=== PATIENT | female | born 1950 | race Caucasian/White ===

== ENCOUNTER → 2024-09-17 | Outpatient (CLI) | payer OTHER, SELFPAY ==
--- NOTE | 2024-09-17 13:52 | XR_ITS ---
Examination: Knee, right , 3 views Technique: Knee AP, lateral, oblique 3 views Date and time of exam: September 17, 2024 1357 hours INDICATIONS: Right knee pain and swelling beginning one year ago. FINDINGS: Severe osteopenia Sclerotic areas in the medial femoral condyle No acute fracture Mild tricompartment joint narrowing IMPRESSION: Suspicious for osteonecrosis medial femoral condyle Consider MRI knee without contrast follow-up
== END | disposition home or self-care (01) ==
PROVIDERS: PCP Student in an Organized Health Care Education/Training Program; Referring Provider Student in an Organized Health Care Education/Training Program; Visit Provider Student in an Organized Health Care Education/Training Program
DX: M25.561 Pain in right knee (principal)
CPT/HCPCS: 73562

== ENCOUNTER → 2024-09-29 | Outpatient (CLI) | payer OTHER, SELFPAY ==
[2024-09-29 10:30] LABS: Basophils % (Auto) 1 % (0-2.5); Eosinophils # (Auto) 0.1 Thou/mm3 (0.0-0.5); Eosinophils % (Auto) 2 % (0-10); Hematocrit 37.3 % (36.0-46.0); Immature Granulocytes % (Auto) 0 % (0-0); Immature Granulocytes Auto 0.01 Thou/mm3 (0.00-0.00); Lymphocytes # (Auto) 1.8 Thou/mm3 (1.0-4.8); Lymphocytes % (Auto) 33 % (10-50); Mean Corpuscular HGB Conc 32.2 g/dl (31.0-37.0); Mean Corpuscular Hemoglobin 28.8 pg (25.0-35.0); Mean Corpuscular Volume 89 fL (80-100); Monocytes # (Auto) 0.5 Thou/mm3 (0.0-0.8); Monocytes % (Auto) 9 % (0-12); Neutrophils # (Auto) 3.2 Thou/mm3 (1.8-7.7); Neutrophils % (Auto) 56 % (37-80); Nucleated Red Blood Cell % 0 /100 WBC (0); Platelet Count 243 Thou/mm3 (140-440); RDW Standard Deviation 45.7 fL (36.4-46.3); Red Blood Count 4.17 Miln/mm3 (4.00-5.20); White Blood Count 5.6 Thou/mm3 (3.6-11.0)
[2024-09-29 10:45] LABS: Glucose Estimated Average 108 mg/dL (80-131); Hemoglobin A1C 5.4 % Hgb (4.8-6.0)
[2024-09-29 11:20] LABS: Alanine Aminotransferase 9 U/L (10-49); Albumin, Serum 3.9 gm/dL (3.4-4.8); Albumin/Globulin Ratio 1.3 (1.2-2.2); Alkaline Phosphatase 231 U/L (46-116); Anion Gap 8 (7-16); Aspartate Amino Transferase 26 U/L (0-34); BUN/Creatinine Ratio 23 Ratio (12-20); Bilirubin,Total 0.4 mg/dL (0.3-1.2); Blood Urea Nitrogen 18 mg/dL (9-23); Calcium 9.4 mg/dL (8.3-10.6); Calcium (Corrected) 9.5 mg/dL (8.5-10.1); Carbon Dioxide 28.5 mMol/L (20.0-31.0); Cardiac Risk Estimate 4.5 RATIO (3.7-5.6); Chloride 104 mMol/L (98-107); Cholesterol 179 mg/dL (132-200); Creatinine (Component) 0.8 mg/dL (0.6-1.3); Globulin 2.9 gm/dL (2.3-3.5); Glucose 98 mg/dL (74-106); HDL Cholesterol 40 mg/dL (40-60); LDL Cholesterol,Calculated 108 mg/dL (0-130); Osmolality,Calculated 281 (275-295); Potassium 4.2 mMol/L (3.4-5.1); Sodium 140 mMol/L (136-145); Total Protein 6.8 gm/dL (5.7-8.2); Triglycerides 156 mg/dL (30-150); Uric Acid 7.9 mg/dL (3.1-7.8); eGFR > 60 See Note
== END | disposition home or self-care (01) ==
LOC: COPL 09:05
PROVIDERS: PCP Student in an Organized Health Care Education/Training Program; Referring Provider Student in an Organized Health Care Education/Training Program; Visit Provider Student in an Organized Health Care Education/Training Program
DX: E11.9 Type 2 diabetes mellitus without complications (principal); E78.5 Hyperlipidemia, unspecified; M25.561 Pain in right knee
CPT/HCPCS: 36415; 80053; 80061; 83036; 84550; 85025

== ENCOUNTER → 2024-12-18 | Outpatient (CLI) | payer OTHER, SELFPAY ==
--- NOTE | 2024-12-18 15:44 | XR_ITS ---
Examination: Venous duplex lower extremity sonogram, bilateral. Date and time of exam: December 18, 2024 1550 hrs. Indications: Bilateral leg pain and swelling beginning 2 years ago Technique: Multiple sonographic images of the deep venous system have been obtained. B-mode/2-D grayscale imaging of vascular structures and Doppler spectral analysis (waveforms) and color performed Both legs are examined. Findings: Deep venous systems do not demonstrate abnormal echogenicity. All visualized deep veins exhibit compressibility. All visualized deep veins exhibit augmentation. Impression: Negative for deep vein thrombosis
== END | disposition home or self-care (01) ==
LOC: CDIM 15:33
PROVIDERS: Referring Provider Student in an Organized Health Care Education/Training Program; Visit Provider Student in an Organized Health Care Education/Training Program
DX: R22.43 Localized swelling, mass and lump, lower limb, bilateral (principal)
CPT/HCPCS: 93970

== ENCOUNTER → 2025-01-02 | Outpatient (CLI) | payer OTHER, SELFPAY ==
--- NOTE | 2025-01-02 17:00 | XR_ITS ---
Exam: MRI knee without contrast, right Date and time of exam: January 02, 2025 1818 hours INDICATIONS: Generalized knee pain 2 years Technique: Multiple axial, coronal, and sagittal sections on the knee have been obtained. T2-Weighted sagittal, fat-suppressed images, TR 3,500, TE 62, T2 weighted coronal fat-saturated images, TR 3,500, TE 62 Proton density sagittal sections, TR 1800, TE 31. T-1 weighted coronal images, TR 524, TE 13.0 Findings: Medial meniscus anterior horn intact. Medial meniscus, body intact. Posterior horn medial meniscus intact. Lateral meniscus anterior horn is intact Lateral meniscus, body is intact Posterior horn lateral meniscus is intact Anterior cruciate ligament appears intact. Posterior cruciate ligament appears intact. Knee effusion is moderate. Quadriceps and patellar tendons appear intact. There is no evidence of tendinosis. Inflammatory change or fracture of Hoffa's fat pad is not seen. Medial patellar facet demonstrates moderate thinning. Lateral patellar facet cartilage demonstrates moderate thinning. Trochlear cartilage demonstrates moderate thinning. Marrow signal area involving the distal femur replacing the medial femoral condyle, at least 8 x 6 x 4 cm. Medial collateral ligament appears intact. No meniscocapsular separation is seen. Illiotibial band and fibular collateral ligament are intact. Biceps femoris tendons appear intact. Medial femoral condylar articular cartilage demonstrates moderate thinning. Lateral femoral condylar articular cartilage demonstratesmoderate thinning. Tibial plateau cartilage demonstrates moderate thinning. Impression: This patient should return for MRI knee images postintravenous contrast to exclude tumor mass replacing the medial femoral condyle and portions of the distal shaft of the femur
== END | disposition home or self-care (01) ==
PROVIDERS: PCP Student in an Organized Health Care Education/Training Program; Referring Provider Student in an Organized Health Care Education/Training Program; Visit Provider Student in an Organized Health Care Education/Training Program
DX: M25.561 Pain in right knee (principal)
CPT/HCPCS: 73721

== ENCOUNTER → 2025-04-06 | Outpatient (CLI) | payer OTHER, SELFPAY | END | disposition home or self-care (01) | LOC: SWHD 13:47 | PROVIDERS: PCP Student in an Organized Health Care Education/Training Program; Referring Provider Student in an Organized Health Care Education/Training Program; Visit Provider Student in an Organized Health Care Education/Training Program | DX: L98.492 Non-pressure chronic ulcer of skin of other sites with fat layer exposed (principal); S21.001A Unspecified open wound of right breast, initial encounter; X58.XXXA Exposure to other specified factors, initial encounter; H54.61 Unqualified visual loss, right eye, normal vision left eye | CPT/HCPCS: 99213; A9270; G0463 ==

== ENCOUNTER → 2025-04-13 | Outpatient (CLI) | payer OTHER, SELFPAY | END | disposition home or self-care (01) | LOC: SWHD 13:58 | PROVIDERS: PCP Student in an Organized Health Care Education/Training Program; Referring Provider Student in an Organized Health Care Education/Training Program; Visit Provider Student in an Organized Health Care Education/Training Program | DX: L98.492 Non-pressure chronic ulcer of skin of other sites with fat layer exposed (principal); S21.001A Unspecified open wound of right breast, initial encounter; X58.XXXA Exposure to other specified factors, initial encounter; H54.61 Unqualified visual loss, right eye, normal vision left eye; C50.911 Malignant neoplasm of unspecified site of right female breast | CPT/HCPCS: 17250; A9270 ==

== ENCOUNTER 2025-04-15 08:50 | Outpatient (RCR) | payer OTHER, SELFPAY ==
--- NOTE | 2025-04-02 14:29 | CTCCONSULT_ITS ---
[facility] [address] [place], [place] [address] Consultation Note Date: 04/02/2025 MR#: [id number] Name: MARKO HATHAWAY : 1950 Dx: C50.211 Right breast CA Referring physician. [facility] Reason for consultation. Patient with right breast CA. History of Present Illness: Patient is a 74-year-old lady initially diagnosed to have right breast CA in 2019 when on 05/20/2020 underwent ultrasound-guided needle biopsy of right breast revealing invasive ductal carcinoma intermediate grade 1.6 cm. Receptor positive HER2 negative Ki-67 less than 5%. Patient elected to not seek any treatment and rarely saw doctors for this problem. Recently 01/02/2025 patient had MRI of the right knee due to pain there revealing marrow signal area involving distal femur replacing medial femoral condyle of at least 8 x 6 x 4 cm. With breast cancer currently recurring significantly was referred to Dr. Yancey breast surgeon who declined breast surgery. Patient now referred to the cancer center. Patient states she has pain particular in the right knee area and pelvis but takes ibuprofen which take some of the pain away. Past Medical History: Right breast cancer for 5 years but no treatment sought. Diabetes glaucoma; Meds. Timolol ibuprofen various vitamins and herbs natural meds stool softeners Social History: Patient bilingual originally from [place] retired. Family history. 2 sisters had breast cancer Review of Systems: Has had pain weight loss general malaise. Physical Exam: General: Tired appearing lady in a wheelchair accompanied by relatives HEENT: Atraumatic no cephalic extraocular intact no oral lesions CV: Easily visible and palpable right breast tumor covering most of the breast with an ulcerated area in the central region. Axillary adenopathy bilaterally ABD: Soft no organomegaly or tenderness EXT: Right knee femur tenderness. Assessment:1. Patient with right breast CA diagnosed April 2020. Receptor positive HER2 negative; treated with natural remedies and did not seek conventional care. 2. Clearly locally advanced right breast cancer with likely distant mets including bone. 3. Patient had trouble lying still for recent right knee MRI. Will order plain x-rays of the spine pelvis right femur. Along with chest x-ray. 4. PET scan ordered which may be difficult due to her current condition but perhaps she will be more comfortable in a few weeks. 5. Elected to place her on tramadol for pain as ibuprofen that she is currently taking is not relieving pain enough. 5. Dr. Moss medical oncologist to see patient in a few days. 6. Thank for allowing me us to evaluate this unfortunate patient. We will do what we can to help her. Electronically signed by: Zeke Navarro MD, DABR 04/02/2025 2:27 PM
--- NOTE | 2025-04-15 11:04 | CTCCONSULT_ITS ---
Patient: MARKO HATHAWAY : 1950 MR#: [id number] Page 2 of 2 CONSULTATION NOTE DATE OF CONSULTATION: 04/15/2025 NAME: MARKO HATHAWAY ACCOUNT: [id number] : 1950 AGE: 74 REFERRING PHYSICIAN: Wayne Sandoval MD PRIMARY PHYSICIAN: Wayne Sandoval MD REASON FOR VISIT: ER positive breast cancer ONCOLOGY HISTORY: DIAGNOSIS: Malignant neoplasm of upper-inner quadrant of right female breast [ICD10] C50.211 DATE OF DIAGNOSIS: 04/30/2020 STAGE/TNM: Likely stage IV invasive ductal carcinoma of breast TREATMENT HISTORY: Care?Plan Start?Date Cycle Day Intent HISTORY OF PRESENT ILLNESS: 74-year-old female with a diagnosis of breast cancer in 2019. Patient is legally blind. And is stays in wheelchair. Patient tries to be active. Patient was diagnosed in 2019. Patient did not pursue any treatment as was not interested in pursuing further therapy. Patient now have nonhealing wound on the right breast. Patient was seen by surgery and no surgery can be performed. Patient is now here for treatment OTHER MEDICAL HISTORY/CONDITIONS: Right breast invasive ductal carcinoma - dx 05/20/20 Diabetes Glaucoma Legally blind Right?eye?cataract?surgey FAMILY HISTORY: Cancer History:?1 SIS BREST / 1 SIS BREAST . 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 Arimidex - 1 mg 1 tab Daily 2. ashwagandha extract - 500 mg 1 Capsule Daily 3. biotin - 1 mg 1 tab Daily 4. cyanocobalamin (vitamin B-12) - 1,000 mcg 1 tab Daily 5. Fish Oil - 1,000 mg 1 Capsule Daily 6. flaxseed oil - 1,000 mg 1 Capsule Daily 7. grape seed extract - 100 mg 1 Capsule Daily 8. ibuprofen - 800 mg As directed 9. latanoprost - 0.005 As directed 10. magnesium - 100 mg 1 tab Daily 11. milk thistle - 140 mg 1 Capsule Daily 12. olive leaf extract - 250 mg 1 Capsule Daily 13. oregano oiL - 1,500 mg 1 Capsule Daily 14. Mobile Pulse - 1.5 billion cell 1 Capsule Daily 15. ribociclib - 600 mg/day (200 mg x 3) 3 tab Daily 16. timolol - 0.5 As directed 17. traMADol - 50 mg 1 tab q6 18. turmeric - 400 mg 1 Capsule Daily 19. vitamin B complex - 1 Capsule Daily 20. Vitamin D3 - 400 unit 1 Capsule Daily 21. zinc - 10 mg 1 tab Daily?Palabra Meds? Medications Last Reconciled by Janel Sanford RN on 04/15/2025 ALLERGIES: No Known Allergies REVIEW OF SYSTEMS: A complete 14-point review of systems was performed and is negative except as noted in interval history. PHYSICAL EXAMINATION: VITAL SIGNS: Temperature?98.5, B/P?128/75, Height?62?inches, Oxygen?Saturation?99% Weight?141?lbs PAIN: 2 - Mild pain ECOG Performance Status: 3 - Symptomatic; limited self-care; spends >50% of time in bed, not bedridden GENERAL APPEARANCE: Appears well, in no apparent distress, appropriately interactive. HEENT: Normocephalic, no temporal wasting, normal conjunctiva, no scleral icterus, normal hearing, lips without lesions, neck normal range of motion. CARDIOVASCULAR: Not assessed. PULMONARY: Normal respiratory effort, no respiratory distress or use of accessory muscles, speaking in full sentences, no tachypnea. EXTREMITIES: No pedal edema or cyanosis. SKIN: Normal skin appearance. NEUROLOGIC: Alert and oriented x4. PSHYCHIATRIC: Appropriate affect, mood normal, behavior normal, intact thought and speech. Right breast shows fungating mass LABORATORY DATA: I have personally reviewed and interpreted each of the patient?s relevant lab tests, abnormal findings are below: Date ASSESSMENT/PLAN: 74-year-old woman with diagnosis of breast cancer Metastatic breast cancer Patient have visible lesions on the bones PET CT scan is pending Initial cancer was ER positive Will start on anastrozole Ordered a ribociclib Reordered biopsy to biopsy breast mass as well as bone 12 wait for ER/KS and HER2 receptor status Will do Caris NGS panel and PD-L1 on the tissue EKG echocardiogram ordered ECHO RTC in 4 weeks ORDERS: Order # Description [id number] Comprehensive Metabolic Panel - 12 + CBC with Auto Diff + CA 15-3 + [id number] Iron Panel + Ferritin + Vitamin B-12 + Folic Acid; Serum + Assay Of Haptoglobin Quant + Lactate Dehydrogenase (LDH) [id number] Cardiac ECHO RETURN TO CLINIC: I reviewed the diagnosis, prognosis, and recommended treatment/procedure options with the patient (and/or their legal patient registration representative), including the potential benefits, risks, side effects and alternative therapies. We also discussed the option of no treatment and the possibility of clinical trial participation, if applicable. All questions were addressed, and they demonstrated understanding. They provided informed consent to proceed with the proposed plan of care. BILLING AND COMPLIANCE: I reviewed external records from providers outside my specialty as summarized above. I spent a total of 50 minutes on this patient?s care on the day of their visit excluding time spent related to any billed procedures. This time includes time spent with the patient as well as time spent documenting in the medical record, reviewing patients records and tests, obtaining history, placing orders, communicating with other healthcare professionals, counseling the patient, family or caregiver, and/or care coordination for the diagnoses above. Electronically Signed by: Osmin Moss MD T: 11:02 AM CC: PCP: Wayne Sandoval Referring: Wayne Sandoval This document was completed utilizing speech recognition software. Grammatical errors, random word insertions, pronoun errors, and incomplete sentences are an occasional consequence of this system due to software limitations, ambient noise, and hardware issues. Any formal questions or concerns about the content, text or information contained within the body of this dictation should be directly addressed to the provider for clarification.
== END 2025-04-26 23:59 | disposition home or self-care (01) ==
LOC: SCTC 08:50
PROVIDERS: PCP Student in an Organized Health Care Education/Training Program; Referring Provider Student in an Organized Health Care Education/Training Program; Visit Provider Internal Medicine Hematology & Oncology
DX: C50.411 Malignant neoplasm of upper-outer quadrant of right female breast (principal); Z17.0 Estrogen receptor positive status [ER+]; Z17.21 Progesterone receptor positive status; Z17.32 Human epidermal growth factor receptor 2 negative status; M89.9 Disorder of bone, unspecified
CPT/HCPCS: 99213; G0463

== ENCOUNTER → 2025-04-16 | Outpatient (CLI) | payer OTHER, SELFPAY ==
[2025-04-16 09:34] LABS: Basophils # (Auto) 0.0 Thou/mm3 (0.0-0.2); Basophils % (Auto) 1 % (0-2.5); Eosinophils # (Auto) 0.1 Thou/mm3 (0.0-0.5); Eosinophils % (Auto) 1 % (0-10); Hematocrit 35.2 % (36.0-46.0); Hemoglobin 11.8 g/dL (12.0-16.0); Immature Granulocytes Auto 0.02 Thou/mm3 (0.00-0.00); Lymphocytes # (Auto) 1.7 Thou/mm3 (1.0-4.8); Lymphocytes % (Auto) 25 % (10-50); Mean Corpuscular HGB Conc 33.5 g/dl (31.0-37.0); Mean Corpuscular Hemoglobin 29.9 pg (25.0-35.0); Mean Corpuscular Volume 89 fL (80-100); Monocytes # (Auto) 0.5 Thou/mm3 (0.0-0.8); Monocytes % (Auto) 8 % (0-12); Neutrophils # (Auto) 4.3 Thou/mm3 (1.8-7.7); Neutrophils % (Auto) 65 % (37-80); Nucleated Red Blood Cell # 0.00 Thou/mm3 (0.00-0.00); Nucleated Red Blood Cell % 0 /100 WBC (0); Platelet Count 276 Thou/mm3 (140-440); RDW Standard Deviation 45.5 fL (36.4-46.3); Red Blood Count 3.94 Miln/mm3 (4.00-5.20); White Blood Count 6.6 Thou/mm3 (3.6-11.0)
[2025-04-16 09:54] LABS: Ferritin 116 ng/mL (7.3-270.7); Iron 53 mcg/dL (50-170); Percent Iron Saturation 19 % (20-55); Total Iron Binding Capacity 274 mcg/dL (250-425); Unsaturated Iron Binding 221 (225-295)
[2025-04-16 10:11] LABS: CA 15-3 41.1 U/mL (<32.4); Folate 18.71 ng/mL (>5.38); Vitamin B12 > 2000 pg/mL (211-911)
[2025-04-16 11:27] LABS: Albumin, Serum 4.0 gm/dL (3.4-4.8); Albumin/Globulin Ratio 1.4 (1.2-2.2); Alkaline Phosphatase 200 U/L (46-116); Anion Gap 12 (7-16); Aspartate Amino Transferase 42 U/L (0-34); BUN/Creatinine Ratio 20 Ratio (12-20); Bilirubin,Total 0.5 mg/dL (0.3-1.2); Blood Urea Nitrogen 16 mg/dL (9-23); Calcium 10.3 mg/dL (8.3-10.6); Calcium (Corrected) 10.3 mg/dL (8.5-10.1); Carbon Dioxide 26.5 mMol/L (20.0-31.0); Chloride 103 mMol/L (98-107); Creatinine (Component) 0.8 mg/dL (0.6-1.3); Globulin 2.9 gm/dL (2.3-3.5); Glucose 95 mg/dL (74-106); LDH (Lactate Dehydrogenase) 243 U/L (120-246); Osmolality,Calculated 282 (275-295); Potassium 4.0 mMol/L (3.4-5.1); Sodium 141 mMol/L (136-145); Total Protein 6.9 gm/dL (5.7-8.2); eGFR > 60 See Note
[2025-04-16 11:42] LABS: Alanine Aminotransferase < 7 U/L (10-49)
[2025-04-22 06:30] LABS: Haptoglobin* 199 mg/dL (43-212)
== END | disposition home or self-care (01) ==
LOC: SCTO 09:01
PROVIDERS: PCP Student in an Organized Health Care Education/Training Program; Referring Provider Internal Medicine Hematology & Oncology; Visit Provider Internal Medicine Hematology & Oncology
DX: C50.211 Malignant neoplasm of upper-inner quadrant of right female breast (principal)
CPT/HCPCS: 36415; 80053; 82607; 82728; 82746; 83010; 83540; 83550; 83615; 85025; 86300

== ENCOUNTER → 2025-04-20 | Outpatient (CLI) | payer OTHER, SELFPAY | END | disposition home or self-care (01) | LOC: SWHD 14:15 | PROVIDERS: PCP Student in an Organized Health Care Education/Training Program; Referring Provider Student in an Organized Health Care Education/Training Program; Visit Provider Student in an Organized Health Care Education/Training Program | DX: L98.492 Non-pressure chronic ulcer of skin of other sites with fat layer exposed (principal); S21.001A Unspecified open wound of right breast, initial encounter; X58.XXXA Exposure to other specified factors, initial encounter; H54.61 Unqualified visual loss, right eye, normal vision left eye; C50.911 Malignant neoplasm of unspecified site of right female breast | CPT/HCPCS: 17250; 99213; A9270; G0463 ==

== ENCOUNTER → 2025-04-23 | Outpatient (CLI) | payer OTHER, SELFPAY ==
--- NOTE | 2025-04-23 13:50 | XR_ITS ---
Examination: AP lateral chest 2 views TECHNIQUE: Upright AP lateral chest 2 views Date and time: April 23, 2025 1530 hours INDICATIONS: Breast carcinoma diagnosis with chest pain FINDINGS: Normal heart size Soft tissue density overlying the upper right chest Cortical bone destruction involving the right scapula Ribs appear grossly intact Extensive bone destruction also involving the left mid and medial clavicle IMPRESSION: Osseous metastatic disease involving the right scapula and left clavicle, with soft tissue mass projecting over the upper right chest, recommend CT chest post intravenous contrast follow-up
--- NOTE | 2025-04-23 13:50 | XR_ITS ---
Examination: AP pelvis single view Technique one AP pelvis single view INDICATIONS: Diagnosis malignant neoplasm breast, hip pain FINDINGS: Marked cortical bone destruction left hemipelvis including the left ischium and left inferior pubic ramus left superior pubic ramus and medial margin of the left femoral neck Also marked bone destruction right superior inferior pubic rami Also bone destruction involving both iliac bones the acetabular regions and right and left sacrum IMPRESSION: Extensive bone destruction involving the pelvis and left hip, recommend CT scan abdomen pelvis post intravenous contrast follow-up
--- NOTE | 2025-04-23 13:50 | XR_ITS ---
Examination: Right femur 2 views Technique one AP lateral right femur 2 views Date and time: April 15, 2025 1548 hours INDICATIONS: Right leg pain one month, breast carcinoma diagnosis. FINDINGS: Cortical bone destruction involving the medial acetabulum right superior and inferior pubic rami Cortical bone destruction involving the distal femur extending to the medial femoral condyle IMPRESSION: Osseous metastatic disease as above
--- NOTE | 2025-04-23 13:50 | XR_ITS ---
Examination: Lumbar spine, 5 views Technique: Lumbar spine AP, lateral, coned lateral lower lumbar spine, bilateral obliques 5 views Exam date and time: April 15, 2025 1459 hours INDICATIONS: Back pain several months, diagnosis breast cancer. FINDINGS: Severe bone destruction involving L4, L5 and bilateral sacrum, as well as both iliac bones above the acetabulum, bilateral superior pubic rami left ischium IMPRESSION: Extensive osseous metastatic disease, very prominent bone destruction involving the L4-L5 vertebral bodies and sacrum, recommend MRI lumbar spine follow-up pre and postcontrast
--- NOTE | 2025-04-23 13:50 | XR_ITS ---
Examination: Thoracic spine 3 views Technique one AP lateral coned thoracic spine upper region 3 views Date and time: April 23, 2025 1539 hours INDICATIONS: Back pain several months, breast cancer diagnosis. FINDINGS: Prominent osteopenia No acute thoracic fracture No dennis cortical bone destruction IMPRESSION: No dennis osseous metastatic disease involving thoracic spine
--- NOTE | 2025-04-23 13:50 | XR_ITS ---
EXAMINATION: Cervical spine, 5 views Technique: Cervical spine AP, AP odontoid, lateral, bilateral obliques, 5 views Exam date and time: April 15, 2025 1524 hours INDICATIONS: Neck pain months, breast carcinoma diagnosis. FINDINGS: Adequate alignment cervical vertebral bodies No cervical fracture Advanced disc narrowing C5-C6 No dennis cortical bone destruction IMPRESSION: Advanced degenerative disc disease C5-C6
== END | disposition home or self-care (01) ==
LOC: CDIM 13:39
PROVIDERS: PCP Student in an Organized Health Care Education/Training Program; Referring Provider Radiology Therapeutic Radiology; Visit Provider Radiology Therapeutic Radiology
DX: M89.8X0 Other specified disorders of bone, multiple sites (principal); M54.9 Dorsalgia, unspecified; M50.322 Other cervical disc degeneration at C5-C6 level; C79.51 Secondary malignant neoplasm of bone
CPT/HCPCS: 71046; 72050; 72072; 72110; 72170; 73552

== ENCOUNTER → 2025-05-04 | Outpatient (CLI) | payer OTHER, SELFPAY | END | disposition home or self-care (01) | LOC: SWHD 14:12 | PROVIDERS: PCP Student in an Organized Health Care Education/Training Program; Referring Provider Student in an Organized Health Care Education/Training Program; Visit Provider Student in an Organized Health Care Education/Training Program | DX: L98.492 Non-pressure chronic ulcer of skin of other sites with fat layer exposed (principal); S21.001A Unspecified open wound of right breast, initial encounter; X58.XXXA Exposure to other specified factors, initial encounter; H54.61 Unqualified visual loss, right eye, normal vision left eye; C50.911 Malignant neoplasm of unspecified site of right female breast | CPT/HCPCS: 99212; A9270; G0463 ==

== ENCOUNTER → 2025-05-06 | Outpatient (CLI) | payer OTHER, SELFPAY ==
--- NOTE | 2025-05-06 10:20 | EKG_ITS ---
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
== END | disposition home or self-care (01) ==
PROVIDERS: PCP Student in an Organized Health Care Education/Training Program; Referring Provider Internal Medicine Hematology & Oncology; Visit Provider Internal Medicine Hematology & Oncology
DX: C50.211 Malignant neoplasm of upper-inner quadrant of right female breast (principal)
CPT/HCPCS: 93005

== ENCOUNTER → 2025-05-07 | Outpatient (CLI) | payer OTHER, SELFPAY ==
[2025-05-07 11:14] LABS: Basophils # (Auto) 0.0 Thou/mm3 (0.0-0.2); Basophils % (Auto) 1 % (0-2.5); Eosinophils # (Auto) 0.1 Thou/mm3 (0.0-0.5); Eosinophils % (Auto) 1 % (0-10); Hematocrit 40.0 % (36.0-46.0); Hemoglobin 12.8 g/dL (12.0-16.0); Immature Granulocytes Auto 0.02 Thou/mm3 (0.00-0.00); Lymphocytes # (Auto) 2.0 Thou/mm3 (1.0-4.8); Lymphocytes % (Auto) 31 % (10-50); Mean Corpuscular HGB Conc 32.0 g/dl (31.0-37.0); Mean Corpuscular Hemoglobin 29.1 pg (25.0-35.0); Mean Corpuscular Volume 91 fL (80-100); Monocytes # (Auto) 0.5 Thou/mm3 (0.0-0.8); Monocytes % (Auto) 7 % (0-12); Neutrophils # (Auto) 4.0 Thou/mm3 (1.8-7.7); Neutrophils % (Auto) 60 % (37-80); Nucleated Red Blood Cell # 0.00 Thou/mm3 (0.00-0.00); Nucleated Red Blood Cell % 0 /100 WBC (0); Platelet Count 265 Thou/mm3 (140-440); RDW Standard Deviation 47.8 fL (36.4-46.3); Red Blood Count 4.40 Miln/mm3 (4.00-5.20); White Blood Count 6.6 Thou/mm3 (3.6-11.0)
[2025-05-07 11:30] LABS: Alanine Aminotransferase 7 U/L (10-49); Albumin, Serum 4.6 gm/dL (3.4-4.8); Albumin/Globulin Ratio 1.6 (1.2-2.2); Alkaline Phosphatase 258 U/L (46-116); Anion Gap 11 (7-16); Aspartate Amino Transferase 26 U/L (0-34); BUN/Creatinine Ratio 14 Ratio (12-20); Bilirubin,Total 0.4 mg/dL (0.3-1.2); Blood Urea Nitrogen 11 mg/dL (9-23); Calcium 10.3 mg/dL (8.3-10.6); Calcium (Corrected) 10.3 mg/dL (8.5-10.1); Carbon Dioxide 27.5 mMol/L (20.0-31.0); Chloride 102 mMol/L (98-107); Creatinine (Component) 0.8 mg/dL (0.6-1.3); Globulin 2.9 gm/dL (2.3-3.5); Glucose 104 mg/dL (74-106); Osmolality,Calculated 278 (275-295); Potassium 4.1 mMol/L (3.4-5.1); Sodium 140 mMol/L (136-145); Total Protein 7.5 gm/dL (5.7-8.2); eGFR > 60 See Note
[2025-05-07 18:00] LABS: CA 15-3 30.9 U/mL (<32.4)
== END | disposition home or self-care (01) ==
LOC: SCTO 10:32
PROVIDERS: PCP Student in an Organized Health Care Education/Training Program; Referring Provider Internal Medicine Hematology & Oncology; Visit Provider Internal Medicine Hematology & Oncology
DX: C50.211 Malignant neoplasm of upper-inner quadrant of right female breast (principal)
CPT/HCPCS: 36415; 80053; 85025; 86300

== ENCOUNTER → 2025-05-08 | Outpatient (CLI) | payer OTHER, SELFPAY ==
--- NOTE | 2025-05-08 10:30 | ECHO_ITS ---
Transthoracic Echo Report Ht (in): 62 Wt (lb): 141 Exam Location: Echo Lab Status: Preadmit Gang Investigator: Abril Vieira Indications: Procedure Performed: BP: 127 / 62 HR: 71 MEASUREMENTS (Male / Female) Normal Values 2D ECHO LV Diastolic Diameter PLAX 3.9 cm 4.2 - 5.9 / 3.9 - 5.3 cm LV Systolic Diameter PLAX 2.6 cm IVS Diastolic Thickness 0.8 cm 0.6 - 1.0 / 0.6 - 0.9 cm LVPW Diastolic Thickness 1.0 cm 0.6 - 1.0 / 0.6 - 0.9 cm LV Relative Wall Thickness 0.5 LVOT Diameter 1.9 cm LA Volume Index 24.4 cm?/m? 16 - 28 cm?/m? Ascending Aorta Diameter 2.7 cm M-MODE AV Cusp Separation MM 1.4 cm DOPPLER AV Peak Velocity 155.0 cm/s AV Peak Gradient 9.6 mmHg AV Mean Gradient 4.0 mmHg AV Velocity Time Integral 30.3 cm AI Peak Velocity 414.0 cm/s AI Peak Gradient 68.6 mmHg AI Pressure Half Time 623.0 ms LVOT Peak Velocity 120.0 cm/s LVOT Peak Gradient 5.8 mmHg LVOT Velocity Time Integral 27.4 cm LVOT Cardiac Index 3269.3 cm?/min?m? AV Area Cont Eq vti 2.6 cm? AV Area Cont Eq pk 2.2 cm? MV Area PHT 3.1 cm? Mitral E Point Velocity 68.4 cm/s Mitral A Point Velocity 89.2 cm/s Mitral E to A Ratio 0.8 LV E' Lateral Velocity 7.6 cm/s Mitral E to LV E' Lateral Ratio 9.0 LV E' Septal Velocity 7.1 cm/s Mitral E to LV E' Septal Ratio 9.7 TR Peak Velocity 149.3 cm/s TR Peak Gradient 8.9 mmHg PV Peak Velocity 73.7 cm/s PV Peak Gradient 2.2 mmHg FINDINGS Left Ventricle Normal left ventricular size, wall thickness, systolic function with no obvious regional wall motion abnormalities.There is grade I diastolic dysfunction of the left ventricle (impaired relaxation pattern). . The ejection fraction is visually estimated at -60%. Right Ventricle The right ventricle is normal in size and systolic function. Left Atrium The left atrium is normal by two-dimensional, color flow and Doppler imaging with no structural abnormalities, no thrombus formation present. Right Atrium The right atrium is normal by two-dimensional imaging, color flow and Doppler imaging with no structural abnormalities, no thrombus formation present. Atrial Septum The interatrial septum appears normal with no evidence of a shunt. Aorta The aorta is normal by two-dimensional, color flow and Doppler interrogation. Mitral Valve The mitral valve is normal by two-dimensional, color flow and Doppler interrogation. There is no significant mitral valve regurgitation, stenosis or prolapse. Aortic Valve The aortic valve is trileaflet and normal by two-dimensional, color flow and Doppler interrogation. Mild aortic valve regurgitation. Tricuspid Valve The tricuspid valve is normal by two-dimensional, color flow and Doppler interrogation.there is trace tricuspid valve regurgitation. Pulmonic Valve The pulmonic valve is not well visualized. There is no significant pulmonic valve regurgitation. Vessels The pulmonary artery appears normal. The inferior vena cava pulmonary and hepatic veins appear normal. Pericardium The pericardium is normal by two-dimensional imaging. There is no significant pericardial effusion. CONCLUSIONS Indication: Malignant neoplasm of upper- inner quadrant of right female B Normal left ventricular size and function. Approximate ejection fraction is 60%. Grade I diastolic dysfunction The right ventricle is normal in size and systolic function. Mild aortic valve regurgitation trace Triscuspid regurgitation Ashley Mayer (Electronically Signed) Final Date: 11 May 2025 17:44
== END | disposition home or self-care (01) ==
LOC: SDIM 10:16
PROVIDERS: PCP Student in an Organized Health Care Education/Training Program; Referring Provider Internal Medicine Hematology & Oncology; Visit Provider Internal Medicine Hematology & Oncology
DX: I08.3 Combined rheumatic disorders of mitral, aortic and tricuspid valves (principal); C50.211 Malignant neoplasm of upper-inner quadrant of right female breast
CPT/HCPCS: 93306

== ENCOUNTER → 2025-05-18 | Outpatient (CLI) | payer OTHER, SELFPAY | END | disposition home or self-care (01) | LOC: SWHD 14:19 | PROVIDERS: PCP Student in an Organized Health Care Education/Training Program; Referring Provider Student in an Organized Health Care Education/Training Program; Visit Provider Surgery | DX: L98.492 Non-pressure chronic ulcer of skin of other sites with fat layer exposed (principal); S21.001A Unspecified open wound of right breast, initial encounter; X58.XXXA Exposure to other specified factors, initial encounter; H54.61 Unqualified visual loss, right eye, normal vision left eye; C50.911 Malignant neoplasm of unspecified site of right female breast | CPT/HCPCS: 99213; A9270; G0463 ==

== ENCOUNTER → 2025-05-25 | Outpatient (CLI) | payer OTHER, SELFPAY | END | disposition home or self-care (01) | LOC: SWHD 14:23 | PROVIDERS: PCP Student in an Organized Health Care Education/Training Program; Referring Provider Student in an Organized Health Care Education/Training Program; Visit Provider Student in an Organized Health Care Education/Training Program | DX: L98.492 Non-pressure chronic ulcer of skin of other sites with fat layer exposed (principal); S21.001A Unspecified open wound of right breast, initial encounter; X58.XXXA Exposure to other specified factors, initial encounter; H54.61 Unqualified visual loss, right eye, normal vision left eye; C50.911 Malignant neoplasm of unspecified site of right female breast | CPT/HCPCS: 99213; A9270; G0463 ==

== ENCOUNTER 2025-05-26 15:46 | Outpatient (RCR) | payer OTHER, SELFPAY ==
--- NOTE | 2025-04-30 16:05 | CTCFLWUP_ITS ---
[facility] [address] [place], [place] [address] FOLLOW-UP NOTE Date: 04/30/2025 MR#: [id number] Name: MARKO HATHAWAY : 1950 Dx: C50.211 Malignant neoplasm of upper-inner quadrant of right female breast Identification. Patient with diagnosis of right breast CA in 05/20/2024 biopsy revealed invasive ductal carcinoma receptor positive HER2 negative but elected not see conventional treatments using natural remedies only. Locally advanced right breast CA with bone mets noted on right knee MRI of 01/02/2025 and plain x-rays just completed 04/23/2025 involving right scapula pelvis L4-5 vertebra sacrum left hip. Saw Dr. Moss medical oncologist who has prescribed anastrozole and ordered revolver sick clip. Rebiopsy of breast to check for receptor status HER2/sarai status Carls NGS panel and PD-L1 on tissue. Patient has been prescribed anastrozole and ribociclb. Patient did not like the tramadol that was prescribed to her saying that it upset her stomach and is taking ibuprofen instead. Assessment #1 stage IV breast CA, with apparent widespread bone mets. #2. Initial diagnosis made April 2024 receptor positive HER2 negative but elected to not seek standard cancer treatments. #2. prescribed anastrozole and ribociclib Dr. Moss #3. PET scan pending along with rechecking of receptor HER2/sarai PD-L1 status with repeat biopsy ordered. #4. Patient did not like tramadol and is taking ibuprofen instead. #5 Patient does not think that she can lie still for further imaging studies such as CT or MRI This could be a problem for scheduled PET scan. #6. Will adjust pain meds as needed along with checking the test results as they are completed. Electronically signed by: Zeke Navarro M.D. 04/30/2025 4:02 PM
--- NOTE | 2025-06-01 00:25 | CTCFLWUP_ITS ---
Patient: MARKO HATHAWAY : 1950 Page 3 of 5 FOLLOW UP NOTE DATE OF SERVICE: 05/26/2025 NAME: MARKO HATHAWAY ACCOUNT: [id number] : 1950 AGE: 74 INTERVAL HISTORY: Subjective History of Present Illness Maritza is a patient with breast cancer who recently started treatment with Kisqali and anastrozole. She reports no problems with the current treatment regimen. The patient notes improvement in her right leg pain. Previously, she was unable to stand on her right leg for more than a few seconds, but now she can stand for longer periods. She occasionally experiences brief, mild pain in her breast, lasting only a minute or two, which then resolves on its own. Maritza denies experiencing significant side effects from her medication, particularly noting the absence of severe diarrhea. Maritza is currently taking both Kisqali (3 pills daily for 21 days, followed by a 7-day break) and anastrozole (continuous daily dosing). She demonstrates good adherence to her medication regimen and understanding of the dosing schedule. The patient reports that her hair is starting to dry up, which may be a side effect of the treatment. The patient's overall health status appears to be improving, with the clinician noting that the cancer is already showing signs of shrinkage. Maritza expresses happiness about her progress and seems to have a positive outlook on her treatment. Medical History - Breast cancer with bone metastases, primarily affecting the pelvis and hip bones - Pain in the right leg, improving with treatment - Intermittent breast pain Medications and Supplements - Kisqali - 3 tablets daily for 21 days, followed by 7 days off - No significant side effects reported - EstroGel - Small pill taken continuously without breaks - Anastrozole - Small pill taken continuously without breaks Review of Systems General: Negative for fever, chills, fatigue, and appetite changes. Skin: Positive for hair dryness. Gastrointestinal: Negative for diarrhea. Musculoskeletal: Positive for right leg pain, improved ability to stand. Other: Positive for intermittent breast pain. Objective Physical Examination General: Blue hair noted, appearing to be drying up. Laboratory, Imaging, and Diagnostic Test Results - EKG: Normal - Echocardiogram: Ejection fraction 60% (normal) - Bone scan: Evidence of metastatic disease in pelvis and hip bones - X-ray: Evidence of metastatic disease in lower bones, no disease in spine ONCOLOGY HISTORY: DIAGNOSIS: Malignant neoplasm of upper-inner quadrant of right female breast [ICD10] C50.211 DATE OF DIAGNOSIS: 04/30/2020 STAGE/TNM: Likely stage IV invasive ductal carcinoma of breast TREATMENT HISTORY: Care?Plan Start?Date Cycle Day Intent HISTORY OF PRESENT ILLNESS: 74-year-old female with a diagnosis of breast cancer in 2019. Patient is legally blind. And is stays in wheelchair. Patient tries to be active. Patient was diagnosed in 2019. Patient did not pursue any treatment as was not interested in pursuing further therapy. Patient now have nonhealing wound on the right breast. Patient was seen by surgery and no surgery can be performed. Patient is now here for treatment OTHER MEDICAL HISTORY/CONDITIONS: Right breast invasive ductal carcinoma - dx 05/20/20 Diabetes Glaucoma Legally blind Right?eye?cataract?surgey FAMILY HISTORY: Cancer History:?1 SIS BREST / 1 SIS BREAST . 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 Arimidex - 1 mg 1 tab Daily 2. ashwagandha extract - 500 mg 1 Capsule Daily 3. biotin - 1 mg 1 tab Daily 4. cyanocobalamin (vitamin B-12) - 1,000 mcg 1 tab Daily 5. Fish Oil - 1,000 mg 1 Capsule Daily 6. flaxseed oil - 1,000 mg 1 Capsule Daily 7. grape seed extract - 100 mg 1 Capsule Daily 8. ibuprofen - 800 mg As directed 9. Kisqali - 600 mg/day (200 mg x 3) 600 mg Daily 10. latanoprost - 0.005 As directed 11. magnesium - 100 mg 1 tab Daily 12. milk thistle - 140 mg 1 Capsule Daily 13. olive leaf extract - 250 mg 1 Capsule Daily 14. oregano oiL - 1,500 mg 1 Capsule Daily 15. Medication Review Health - 1.5 billion cell 1 Capsule Daily 16. ribociclib - 600 mg/day (200 mg x 3) 3 tab Daily 17. timolol - 0.5 As directed 18. traMADol - 50 mg 1 tab q6 19. turmeric - 400 mg 1 Capsule Daily 20. vitamin B complex - 1 Capsule Daily 21. Vitamin D3 - 400 unit 1 Capsule Daily 22. zinc - 10 mg 1 tab Daily Medications Last Reconciled by Sherley Pichardo MD on 05/26/2025 ALLERGIES: REVIEW OF SYSTEMS: A complete 14-point review of systems was performed and is negative except as noted in interval history. PHYSICAL EXAMINATION: VITAL SIGNS: Temperature?98.7, B/P?115/56, Oxygen?Saturation?96% Weight?142?lbs (Change?since?04/30/25:?1?lbs) PAIN: 0 - No pain GENERAL APPEARANCE: Appears well, in no apparent distress, appropriately interactive. HEENT: Normocephalic, no temporal wasting, normal conjunctiva, no scleral icterus, normal hearing, lips without lesions, neck normal range of motion. CARDIOVASCULAR: Not assessed. PULMONARY: Normal respiratory effort, no respiratory distress or use of accessory muscles, speaking in full sentences, no tachypnea. EXTREMITIES: No pedal edema or cyanosis. SKIN: Normal skin appearance. NEUROLOGIC: Alert and oriented x4. PSHYCHIATRIC: Appropriate affect, mood normal, behavior normal, intact thought and speech. Right breast shows fungating mass LABORATORY DATA: I have personally reviewed and interpreted each of the patient?s relevant lab tests, abnormal findings are below: Date ASSESSMENT/PLAN: Maritza is a female patient with breast cancer metastatic to bone presenting for oncology follow-up while on treatment with Kisqali and anastrozole. Metastatic Breast Cancer Assessment: Patient is currently on treatment with Kisqali (ribociclib) and anastrozole for metastatic breast cancer. The cancer has metastasized to the bones, particularly in the pelvis and hip bones. There is no evidence of spinal involvement. The patient reports improvement in symptoms, including decreased pain in the right leg and breast. She is tolerating the medication well, taking the full dose of 3 Kisqali tablets daily without significant side effects. Recent imaging (X-ray) confirmed bone metastases, but no aggressive treatment is currently indicated. The patient's heart function is normal (EF 60%) and EKG is unremarkable. Plan: - Continue Kisqali - 3 tablets daily for 21 days, followed by 7 days off - Refill before 21-day cycle ends - Continue anastrozole daily without breaks - Monitor for side effects, particularly diarrhea - If severe side effects occur, reduce Kisqali dose to 1 or 2 tablets daily - Laboratory monitoring: - Complete blood count with focus on white blood cell count - To be done on day 5 or 6 of the 7-day break from Kisqali - Follow-up: - Phone appointment in 4 weeks - Review lab results with nurse (Francisca) - Continue to monitor for pain and symptom improvement - Reassess treatment efficacy in 1-2 months Reordered biopsy to biopsy breast mass as well as bone 12 wait for ER/ID and HER2 receptor status Will do [facility] NGS panel and PD-L1 on the tissue ? please run on new biopsy RTC in 4 weeks RETURN TO CLINIC: I reviewed the diagnosis, prognosis, and recommended treatment/procedure options with the patient (and/or their legal assistance representative), including the potential benefits, risks, side effects and alternative therapies. We also discussed the option of no treatment and the possibility of clinical trial participation, if applicable. All questions were addressed, and they demonstrated understanding. They provided informed consent to proceed with the proposed plan of care. BILLING AND COMPLIANCE: I reviewed external records from providers outside my specialty as summarized above. I spent a total of 50 minutes on this patient?s care on the day of their visit excluding time spent related to any billed procedures. This time includes time spent with the patient as well as time spent documenting in the medical record, reviewing patients records and tests, obtaining history, placing orders, communicating with other healthcare professionals, counseling the patient, family or caregiver, and/or care coordination for the diagnoses above. Electronically Signed by: Osmin Moss MD T: 12:22 AM CC: Walt?Mariaa?Travis,? PCP: Walt Anderson Referring: Watl Anderson This document was completed utilizing speech recognition software. Grammatical errors, random word insertions, pronoun errors, and incomplete sentences are an occasional consequence of this system due to software limitations, ambient noise, and hardware issues. Any formal questions or concerns about the content, text or information contained within the body of this dictation should be directly addressed to the provider for clarification.
== END 2025-05-26 23:59 | disposition home or self-care (01) ==
LOC: SCTC 15:46
PROVIDERS: PCP Student in an Organized Health Care Education/Training Program; Referring Provider Internal Medicine; Visit Provider Internal Medicine Hematology & Oncology
DX: C50.211 Malignant neoplasm of upper-inner quadrant of right female breast (principal); C79.51 Secondary malignant neoplasm of bone; Z17.0 Estrogen receptor positive status [ER+]; Z17.21 Progesterone receptor positive status; Z17.32 Human epidermal growth factor receptor 2 negative status; Z79.811 Long term (current) use of aromatase inhibitors
CPT/HCPCS: 99212; G0463

== ENCOUNTER → 2025-06-01 | Outpatient (CLI) | payer OTHER, SELFPAY ==
--- NOTE | 2025-06-01 10:21 | EKG_ITS ---
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
[2025-06-01 12:05] LABS: Basophils # (Auto) 0.0 Thou/mm3 (0.0-0.2); Basophils % (Auto) 1 % (0-2.5); Eosinophils # (Auto) 0.1 Thou/mm3 (0.0-0.5); Eosinophils % (Auto) 2 % (0-10); Hematocrit 35.6 % (36.0-46.0); Hemoglobin 11.7 g/dL (12.0-16.0); Immature Granulocytes Auto 0.02 Thou/mm3 (0.00-0.00); Lymphocytes # (Auto) 1.0 Thou/mm3 (1.0-4.8); Lymphocytes % (Auto) 34 % (10-50); Mean Corpuscular HGB Conc 32.9 g/dl (31.0-37.0); Mean Corpuscular Hemoglobin 29.9 pg (25.0-35.0); Mean Corpuscular Volume 91 fL (80-100); Monocytes # (Auto) 0.1 Thou/mm3 (0.0-0.8); Monocytes % (Auto) 3 % (0-12); Neutrophils # (Auto) 1.7 Thou/mm3 (1.8-7.7); Neutrophils % (Auto) 59 % (37-80); Nucleated Red Blood Cell # 0.00 Thou/mm3 (0.00-0.00); Nucleated Red Blood Cell % 0 /100 WBC (0); Platelet Count 240 Thou/mm3 (140-440); RDW Standard Deviation 46.8 fL (36.4-46.3); Red Blood Count 3.91 Miln/mm3 (4.00-5.20); White Blood Count 2.8 Thou/mm3 (3.6-11.0)
[2025-06-01 12:21] LABS: Alanine Aminotransferase < 7 U/L (10-49); Albumin, Serum 4.1 gm/dL (3.4-4.8); Albumin/Globulin Ratio 1.5 (1.2-2.2); Alkaline Phosphatase 252 U/L (46-116); Anion Gap 10 (7-16); Aspartate Amino Transferase 20 U/L (0-34); BUN/Creatinine Ratio 14 Ratio (12-20); Bilirubin,Total 0.5 mg/dL (0.3-1.2); Blood Urea Nitrogen 14 mg/dL (9-23); Calcium 9.2 mg/dL (8.3-10.6); Calcium (Corrected) 9.2 mg/dL (8.5-10.1); Carbon Dioxide 26.7 mMol/L (20.0-31.0); Chloride 104 mMol/L (98-107); Creatinine (Component) 1.0 mg/dL (0.6-1.3); Globulin 2.7 gm/dL (2.3-3.5); Glucose 128 mg/dL (74-106); Osmolality,Calculated 283 (275-295); Potassium 3.9 mMol/L (3.4-5.1); Sodium 141 mMol/L (136-145); Total Protein 6.8 gm/dL (5.7-8.2); eGFR 58 See Note
== END | disposition home or self-care (01) ==
LOC: SEKG 10:12
PROVIDERS: PCP Student in an Organized Health Care Education/Training Program; Referring Provider Internal Medicine Hematology & Oncology; Visit Provider Internal Medicine Hematology & Oncology
DX: C50.211 Malignant neoplasm of upper-inner quadrant of right female breast (principal)
CPT/HCPCS: 36415; 80053; 85025; 93005

== ENCOUNTER → 2025-06-08 | Outpatient (CLI) | payer OTHER, SELFPAY | END | disposition home or self-care (01) | LOC: SWHD 14:48 | PROVIDERS: PCP Student in an Organized Health Care Education/Training Program; Referring Provider Student in an Organized Health Care Education/Training Program; Visit Provider Surgery | DX: L98.492 Non-pressure chronic ulcer of skin of other sites with fat layer exposed (principal); S21.001A Unspecified open wound of right breast, initial encounter; X58.XXXA Exposure to other specified factors, initial encounter; H54.61 Unqualified visual loss, right eye, normal vision left eye; C50.911 Malignant neoplasm of unspecified site of right female breast | CPT/HCPCS: 99213; A9270; G0463 ==

== ENCOUNTER → 2025-06-15 | Outpatient (CLI) | payer OTHER, SELFPAY ==
--- NOTE | 2025-06-15 11:16 | EKG_ITS ---
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
[2025-06-15 11:58] LABS: Basophils # (Auto) 0.0 Thou/mm3 (0.0-0.2); Basophils % (Auto) 1 % (0-2.5); Eosinophils # (Auto) 0.0 Thou/mm3 (0.0-0.5); Eosinophils % (Auto) 1 % (0-10); Hematocrit 33.1 % (36.0-46.0); Hemoglobin 10.9 g/dL (12.0-16.0); Immature Granulocytes Auto 0.00 Thou/mm3 (0.00-0.00); Lymphocytes # (Auto) 1.5 Thou/mm3 (1.0-4.8); Lymphocytes % (Auto) 53 % (10-50); Mean Corpuscular HGB Conc 32.9 g/dl (31.0-37.0); Mean Corpuscular Hemoglobin 30.6 pg (25.0-35.0); Mean Corpuscular Volume 93 fL (80-100); Monocytes # (Auto) 0.3 Thou/mm3 (0.0-0.8); Monocytes % (Auto) 11 % (0-12); Neutrophils # (Auto) 1.0 Thou/mm3 (1.8-7.7); Neutrophils % (Auto) 35 % (37-80); Nucleated Red Blood Cell # 0.00 Thou/mm3 (0.00-0.00); Nucleated Red Blood Cell % 0 /100 WBC (0); Platelet Count 191 Thou/mm3 (140-440); RDW Standard Deviation 49.7 fL (36.4-46.3); Red Blood Count 3.56 Miln/mm3 (4.00-5.20); White Blood Count 2.9 Thou/mm3 (3.6-11.0)
[2025-06-15 12:32] LABS: Alanine Aminotransferase < 7 U/L (10-49); Albumin, Serum 4.1 gm/dL (3.4-4.8); Albumin/Globulin Ratio 1.5 (1.2-2.2); Alkaline Phosphatase 271 U/L (46-116); Anion Gap 11 (7-16); Aspartate Amino Transferase 17 U/L (0-34); BUN/Creatinine Ratio 10 Ratio (12-20); Bilirubin,Total 0.4 mg/dL (0.3-1.2); Blood Urea Nitrogen 9 mg/dL (9-23); Calcium 9.1 mg/dL (8.3-10.6); Calcium (Corrected) 9.1 mg/dL (8.5-10.1); Carbon Dioxide 27.2 mMol/L (20.0-31.0); Chloride 104 mMol/L (98-107); Creatinine (Component) 0.9 mg/dL (0.6-1.3); Globulin 2.7 gm/dL (2.3-3.5); Glucose 95 mg/dL (74-106); Osmolality,Calculated 281 (275-295); Potassium 4.1 mMol/L (3.4-5.1); Sodium 142 mMol/L (136-145); Total Protein 6.8 gm/dL (5.7-8.2); eGFR > 60 See Note
== END | disposition home or self-care (01) ==
LOC: SLAB 11:07
PROVIDERS: Referring Provider Internal Medicine Hematology & Oncology; Visit Provider Internal Medicine Hematology & Oncology
DX: C50.211 Malignant neoplasm of upper-inner quadrant of right female breast (principal)
CPT/HCPCS: 36415; 80053; 85025; 93005

== ENCOUNTER → 2025-06-19 | Outpatient (CLI) | payer OTHER, SELFPAY ==
--- NOTE | 2025-06-19 11:15 | XR_ITS ---
Examination: Breast ultrasound complete, bilateral Date and time of exam: June 19, 2025, total 08 hours MEDICATIONS: Invasive ductal cell carcinoma right breast 2 o'clock position 05/20/2020, open right breast wound in the upper region beginning of February 2025 Technique: Real-time grayscale ultrasonographic imaging bilateral breasts, including all 4 quadrants as well as nipple retroareolar and axillary regions. Findings: Sonographic images right breast 12-2 o'clock mass with indistinct margins 5.0 x 5.8 cm 10:00 mass indistinct margins and 15 x 15 mm Enlarged abnormal axillary lymph node 3.6 cm 8:00 mass indistinct margins 5 x 6 mm Sonographic images left breast 4:00 nodule lobular margins 5 x 5 mm 8:00 irregular nodule indistinct margins 8 x 7 mm Abnormal left axillary lymph node 2.9 cm Multiple abnormal axillary lymph nodes IMPRESSION: BI-RADS Category 4: Masses suspicious for carcinoma Suspicious masses 12 to 2 o'clock position right breast, 10 to 11 o'clock position right breast, 8:00 right breast Suspicious mass 8 o'clock position left breast Bilateral multiple suspicious likely metastatic axillary lymph nodes Follow-up biopsies under ultrasound guidance recommended
== END | disposition home or self-care (01) ==
LOC: CDIM 11:22
PROVIDERS: PCP Student in an Organized Health Care Education/Training Program; Referring Provider Internal Medicine Hematology & Oncology; Visit Provider Internal Medicine Hematology & Oncology
DX: N63.15 Unspecified lump in the right breast, overlapping quadrants (principal); N63.11 Unspecified lump in the right breast, upper outer quadrant; N63.24 Unspecified lump in the left breast, lower inner quadrant; C50.211 Malignant neoplasm of upper-inner quadrant of right female breast
CPT/HCPCS: 76641

== ENCOUNTER → 2025-06-22 | Outpatient (CLI) | payer OTHER, SELFPAY | END | disposition home or self-care (01) | LOC: SWHD 14:37 | PROVIDERS: PCP Student in an Organized Health Care Education/Training Program; Referring Provider Student in an Organized Health Care Education/Training Program; Visit Provider Student in an Organized Health Care Education/Training Program | DX: L98.492 Non-pressure chronic ulcer of skin of other sites with fat layer exposed (principal); S21.001A Unspecified open wound of right breast, initial encounter; X58.XXXA Exposure to other specified factors, initial encounter; H54.61 Unqualified visual loss, right eye, normal vision left eye; C50.911 Malignant neoplasm of unspecified site of right female breast | CPT/HCPCS: 99213; A9270; G0463 ==

== ENCOUNTER 2025-06-25 10:15 | Outpatient (RCR) | payer OTHER, SELFPAY ==
--- NOTE | 2025-07-08 11:15 | CTCFLWUP_ITS ---
Patient: MARKO HATHAWAY : 1950 Page 2 of 2 FOLLOW UP NOTE DATE OF SERVICE: 06/25/2025 NAME: MARKO HATHAWAY ACCOUNT: [id number] : 1950 AGE: 74 INTERVAL HISTORY: Subjective History of Present Illness Maritza is a patient with breast cancer who recently started treatment with Kisqali and anastrozole. She reports no problems with the current treatment regimen. The patient notes improvement in her right leg pain. Previously, she was unable to stand on her right leg for more than a few seconds, but now she can stand for longer periods. The lesions on her breast are healing and the wound is almost closing up. Patient is very happy and have no side effects Maritza is currently taking both Kisqali (3 pills daily for 21 days, followed by a 7-day break) and anastrozole (continuous daily dosing). She demonstrates good adherence to her medication regimen and understanding of the dosing schedule. The patient reports that her hair is starting to dry up, which may be a side effect of the treatment. Patient is companied by her sisters. Medical History - Breast cancer with bone metastases, primarily affecting the pelvis and hip bones - Pain in the right leg, improving with treatment - Intermittent breast pain Medications and Supplements - Kisqali - 3 tablets daily for 21 days, followed by 7 days off - No significant side effects reported - EstroGel - Small pill taken continuously without breaks - Anastrozole - Small pill taken continuously without breaks Review of Systems General: Negative for fever, chills, fatigue, and appetite changes. Skin: Positive for hair dryness. Gastrointestinal: Negative for diarrhea. Musculoskeletal: Positive for right leg pain, improved ability to stand. Other: Positive for intermittent breast pain. Objective Physical Examination General: Blue hair noted, appearing to be drying up. Laboratory, Imaging, and Diagnostic Test Results - EKG: Normal - Echocardiogram: Ejection fraction 60% (normal) - Bone scan: Evidence of metastatic disease in pelvis and hip bones - X-ray: Evidence of metastatic disease in lower bones, no disease in spine ONCOLOGY HISTORY: DIAGNOSIS: Malignant neoplasm of upper-inner quadrant of right female breast [ICD10] C50.211 DATE OF DIAGNOSIS: 04/30/2020 STAGE/TNM: Likely stage IV invasive ductal carcinoma of breast TREATMENT HISTORY: Care?Plan Start?Date Cycle Day Intent HISTORY OF PRESENT ILLNESS: 74-year-old female with a diagnosis of breast cancer in 2019. Patient is legally blind. And is stays in wheelchair. Patient tries to be active. Patient was diagnosed in 2019. Patient did not pursue any treatment as was not interested in pursuing further therapy. Patient now have nonhealing wound on the right breast. Patient was seen by surgery and no surgery can be performed. Patient is now here for treatment OTHER MEDICAL HISTORY/CONDITIONS: Right breast invasive ductal carcinoma - dx 05/20/20 Diabetes Glaucoma Legally blind Right?eye?cataract?surgey FAMILY HISTORY: Cancer History:?1 SIS BREST / 1 SIS BREAST . 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 Arimidex - 1 mg 1 tab Daily 2. ashwagandha extract - 500 mg 1 Capsule Daily 3. biotin - 1 mg 1 tab Daily 4. cyanocobalamin (vitamin B-12) - 1,000 mcg 1 tab Daily 5. ferrous gluconate - 324 mg (38 mg iron) 1 tab 1 tab every other day 6. Fish Oil - 1,000 mg 1 Capsule Daily 7. flaxseed oil - 1,000 mg 1 Capsule Daily 8. grape seed extract - 100 mg 1 Capsule Daily 9. ibuprofen - 800 mg As directed 10. Kisqali - 600 mg/day (200 mg x 3) 600 mg Daily 11. latanoprost - 0.005 As directed 12. magnesium - 100 mg 1 tab Daily 13. milk thistle - 140 mg 1 Capsule Daily 14. olive leaf extract - 250 mg 1 Capsule Daily 15. oregano oiL - 1,500 mg 1 Capsule Daily 16. [employer] [facility] Health - 1.5 billion cell 1 Capsule Daily 17. ribociclib - 600 mg/day (200 mg x 3) 3 tab Daily 18. timolol - 0.5 As directed 19. traMADol - 50 mg 1 tab q6 20. turmeric - 400 mg 1 Capsule Daily 21. vitamin B complex - 1 Capsule Daily 22. Vitamin D3 - 400 unit 1 Capsule Daily 23. zinc - 10 mg 1 tab Daily Medications Last Reconciled by Sherley Pichardo MD on 06/25/2025 ALLERGIES: No Known Allergies REVIEW OF SYSTEMS: A complete 14-point review of systems was performed and is negative except as noted in interval history. PHYSICAL EXAMINATION: VITAL SIGNS: Temperature?97.5, B/P?115/65, Oxygen?Saturation?98% Weight?141?lbs (Change?since?05/26/25:?-1?lbs) PAIN: 0 - No pain ECOG Performance Status: 2 - Symptomatic; ambulatory; capable of self-care; >50% of waking hrs. not in bed GENERAL APPEARANCE: Appears well, in no apparent distress, appropriately interactive. HEENT: Normocephalic, no temporal wasting, normal conjunctiva, no scleral icterus, normal hearing, lips without lesions, neck normal range of motion. CARDIOVASCULAR: Not assessed. PULMONARY: Normal respiratory effort, no respiratory distress or use of accessory muscles, speaking in full sentences, no tachypnea. EXTREMITIES: No pedal edema or cyanosis. SKIN: Normal skin appearance. NEUROLOGIC: Alert and oriented x4. PSHYCHIATRIC: Appropriate affect, mood normal, behavior normal, intact thought and speech. Right breast shows fungating mass LABORATORY DATA: I have personally reviewed and interpreted each of the patient?s relevant lab tests, abnormal findings are below: Date 06/15/25 06/29/25 ??WHITE?BLOOD?COUNT?(Thou/mm3) 2.9?L 3.7 ??RED?BLOOD?COUNT?(Miln/mm3) 3.56?L 3.75?L ??HEMOGLOBIN?(gm/dl) 10.9?L 11.7?L ??HEMATOCRIT?(%) 33.1?L 35.8?L ??PLATELET?COUNT?(Thou/mm3) 191 304 ??NEUTROPHILS?%,?AUTO?(%) 35?L 52 ??LYMPH?%,?AUTO?(%) 53?H 40 ??NEUTROPHILS,?AUTO?(Thou/mm3) 1.0?L 2.0 ??GLUCOSE,RANDOM?(mg/dL) 95 95 ??BLOOD?UREA?NITROGEN?(mg/dL) 9 10 ??CREATININE?(mg/dL) 0.90 1.00 ??SODIUM?(mmol/L) 142 140 ??POTASSIUM?(mmol/L) 4.1 4.6 ??CHLORIDE?(mmol/L) 104 107 ??CrCl?(CandG)?(ml/min) 54.07 48.32 ??AST/SGOT?(Unit/L) 17 28 ??ALT/SGPT?(Unit/L) <?7?L 8?L ??ALKALINE?PHOSPHATASE?(Unit/L) 271?H 246?H ??BILIRUBIN,?TOTAL?(mg/dL) 0.4 0.4 ??PROTEIN?TOTAL?(gm/dl) 6.8 6.5 ??ALBUMIN,?SERUM?(gm/dl) 4.1 4.0 ??GLOBULIN?(gm/dl) 2.7 2.5 ??ALBUMIN/GLOBULIN?RATIO 1.5 1.6 ??CALCIUM,?SERUM?(mg/dL) 9.1 9.1 ??CALCIUM?SERUM?(CORRECTED)?(mg/dL) 9.1 9.1 ASSESSMENT/PLAN: Maritza is a female patient with breast cancer metastatic to bone presenting for oncology follow-up while on treatment with Kisqali and anastrozole. Metastatic Breast Cancer Assessment: Patient is currently on treatment with Kisqali (ribociclib) and anastrozole for metastatic breast cancer. The cancer has metastasized to the bones, particularly in the pelvis and hip bones. There is no evidence of spinal involvement. The patient reports improvement in symptoms, including decreased pain in the right leg and breast. She is tolerating the medication well, taking the full dose of 3 Kisqali tablets daily without significant side effects. Recent imaging (X-ray) confirmed bone metastases, but no aggressive treatment is currently indicated. The patient's heart function is normal (EF 60%) and EKG is unremarkable. Patient's breast wound is healing Plan: - Continue Kisqali - 3 tablets daily for 21 days, followed by 7 days off - Refill before 21-day cycle ends - Continue anastrozole daily without breaks - Monitor for side effects, particularly diarrhea - If severe side effects occur, reduce Kisqali dose to 1 or 2 tablets daily - Laboratory monitoring: - Complete blood count with focus on white blood cell count - To be done on day 5 or 6 of the 7-day break from [facility] - Follow-up: - Phone appointment in 4 weeks - Review lab results with nurse (Francisca) - Continue to monitor for pain and symptom improvement - Reassess treatment efficacy in 1-2 months ORDERS: Order # Description [id number] CA [id number] [id number] [id number] Comprehensive Metabolic Panel - 12 + CBC with Auto Diff [id number] MD Follow Up 2 Months [id number] RETURN TO CLINIC: I reviewed the diagnosis, prognosis, and recommended treatment/procedure options with the patient (and/or their legal business services representative), including the potential benefits, risks, side effects and alternative therapies. We also discussed the option of no treatment and the possibility of clinical trial participation, if applicable. All questions were addressed, and they demonstrated understanding. They provided informed consent to proceed with the proposed plan of care. BILLING AND COMPLIANCE: I reviewed external records from providers outside my specialty as summarized above. I spent a total of 50 minutes on this patient?s care on the day of their visit excluding time spent related to any billed procedures. This time includes time spent with the patient as well as time spent documenting in the medical record, reviewing patients records and tests, obtaining history, placing orders, communicating with other healthcare professionals, counseling the patient, family or caregiver, and/or care coordination for the diagnoses above. Electronically Signed by: Osmin Moss MD T: 11:13 AM CC: Walt?Mariaa?Travis,? PCP: Wayne Sandoval Referring: Wayne Sandoval This document was completed utilizing speech recognition software. Grammatical errors, random word insertions, pronoun errors, and incomplete sentences are an occasional consequence of this system due to software limitations, ambient noise, and hardware issues. Any formal questions or concerns about the content, text or information contained within the body of this dictation should be directly addressed to the provider for clarification.
== END 2025-06-26 23:59 | disposition home or self-care (01) ==
LOC: SCTC 10:15
PROVIDERS: PCP Student in an Organized Health Care Education/Training Program; Referring Provider Student in an Organized Health Care Education/Training Program; Visit Provider Internal Medicine Hematology & Oncology
DX: C50.211 Malignant neoplasm of upper-inner quadrant of right female breast (principal); C79.51 Secondary malignant neoplasm of bone; Z17.0 Estrogen receptor positive status [ER+]; Z17.21 Progesterone receptor positive status; Z17.32 Human epidermal growth factor receptor 2 negative status; Z79.811 Long term (current) use of aromatase inhibitors; G89.3 Neoplasm related pain (acute) (chronic)
CPT/HCPCS: 99212; G0463

== ENCOUNTER → 2025-06-29 | Outpatient (CLI) | payer OTHER, SELFPAY ==
--- NOTE | 2025-06-29 11:58 | EKG_ITS ---
[facility] Test Date: 2025-06-29 Pat Name: MARKO HATHAWAY Department: Room: - Gender: Female Faculty Research Assistant: DEMETRA CLEMENTSB: 1950 Requested By: Osmin Moss Order Number: [id number] Reading MD: Osmin Moss Measurements Intervals [place] Rate: 65 P: 50 CO: 162 QRS: 15 QRSD: 75 T: 58 QT: 458 QTc: 480 Interpretive Statements SINUS RHYTHM LOW QRS VOLTAGE IN PRECORDIAL LEADS [QRS DEFLECTION < 1.0 mV IN CHEST LEADS] POSSIBLE RIGHT VENTRICULAR CONDUCTION DELAY [RSR (QR) IN V1/V2] Compared to ECG 06/15/2025 11:28:38 Low QRS voltage now present /store/S0/[id number]/ecg/[id number].pdf
[2025-06-29 13:37] LABS: Basophils # (Auto) 0.1 Thou/mm3 (0.0-0.2); Basophils % (Auto) 1 % (0-2.5); Eosinophils # (Auto) 0.1 Thou/mm3 (0.0-0.5); Eosinophils % (Auto) 1 % (0-10); Hematocrit 35.8 % (36.0-46.0); Hemoglobin 11.7 g/dL (12.0-16.0); Immature Granulocytes Auto 0.01 Thou/mm3 (0.00-0.00); Lymphocytes # (Auto) 1.5 Thou/mm3 (1.0-4.8); Lymphocytes % (Auto) 40 % (10-50); Mean Corpuscular HGB Conc 32.7 g/dl (31.0-37.0); Mean Corpuscular Hemoglobin 31.2 pg (25.0-35.0); Mean Corpuscular Volume 96 fL (80-100); Monocytes # (Auto) 0.2 Thou/mm3 (0.0-0.8); Monocytes % (Auto) 5 % (0-12); Neutrophils # (Auto) 2.0 Thou/mm3 (1.8-7.7); Neutrophils % (Auto) 52 % (37-80); Nucleated Red Blood Cell # 0.00 Thou/mm3 (0.00-0.00); Nucleated Red Blood Cell % 0 /100 WBC (0); Platelet Count 304 Thou/mm3 (140-440); RDW Standard Deviation 65.0 fL (36.4-46.3); Red Blood Count 3.75 Miln/mm3 (4.00-5.20); White Blood Count 3.7 Thou/mm3 (3.6-11.0)
[2025-06-29 13:59] LABS: Alanine Aminotransferase 8 U/L (10-49); Albumin, Serum 4.0 gm/dL (3.4-4.8); Albumin/Globulin Ratio 1.6 (1.2-2.2); Alkaline Phosphatase 246 U/L (46-116); Anion Gap 8 (7-16); Aspartate Amino Transferase 28 U/L (0-34); BUN/Creatinine Ratio 10 Ratio (12-20); Bilirubin,Total 0.4 mg/dL (0.3-1.2); Blood Urea Nitrogen 10 mg/dL (9-23); Calcium 9.1 mg/dL (8.3-10.6); Calcium (Corrected) 9.1 mg/dL (8.5-10.1); Carbon Dioxide 25.5 mMol/L (20.0-31.0); Chloride 107 mMol/L (98-107); Creatinine (Component) 1.0 mg/dL (0.6-1.3); Globulin 2.5 gm/dL (2.3-3.5); Glucose 95 mg/dL (74-106); Osmolality,Calculated 278 (275-295); Potassium 4.6 mMol/L (3.4-5.1); Sodium 140 mMol/L (136-145); Total Protein 6.5 gm/dL (5.7-8.2); eGFR 58 See Note
== END | disposition home or self-care (01) ==
PROVIDERS: PCP Student in an Organized Health Care Education/Training Program; Referring Provider Internal Medicine Hematology & Oncology; Visit Provider Internal Medicine Hematology & Oncology
DX: C50.211 Malignant neoplasm of upper-inner quadrant of right female breast (principal)
CPT/HCPCS: 36415; 80053; 85025; 93005

== ENCOUNTER → 2025-07-06 | Outpatient (CLI) | payer OTHER, SELFPAY | END | disposition home or self-care (01) | LOC: SWHD 14:45 | PROVIDERS: PCP Student in an Organized Health Care Education/Training Program; Referring Provider Student in an Organized Health Care Education/Training Program; Visit Provider Student in an Organized Health Care Education/Training Program | DX: L98.492 Non-pressure chronic ulcer of skin of other sites with fat layer exposed (principal); S21.001A Unspecified open wound of right breast, initial encounter; X58.XXXA Exposure to other specified factors, initial encounter; H54.61 Unqualified visual loss, right eye, normal vision left eye; C50.911 Malignant neoplasm of unspecified site of right female breast | CPT/HCPCS: 99213; G0463 ==

== ENCOUNTER → 2025-07-14 | Outpatient (CLI) | payer OTHER, SELFPAY ==
--- NOTE | 2025-07-14 12:02 | EKG_ITS ---
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
[2025-07-14 12:37] LABS: Basophils # (Auto) 0.0 Thou/mm3 (0.0-0.2); Basophils % (Auto) 1 % (0-2.5); Eosinophils # (Auto) 0.1 Thou/mm3 (0.0-0.5); Eosinophils % (Auto) 1 % (0-10); Hematocrit 35.3 % (36.0-46.0); Hemoglobin 11.7 g/dL (12.0-16.0); Immature Granulocytes Auto 0.01 Thou/mm3 (0.00-0.00); Lymphocytes # (Auto) 1.6 Thou/mm3 (1.0-4.8); Lymphocytes % (Auto) 44 % (10-50); Mean Corpuscular HGB Conc 33.1 g/dl (31.0-37.0); Mean Corpuscular Hemoglobin 32.6 pg (25.0-35.0); Mean Corpuscular Volume 98 fL (80-100); Monocytes # (Auto) 0.4 Thou/mm3 (0.0-0.8); Monocytes % (Auto) 12 % (0-12); Neutrophils # (Auto) 1.5 Thou/mm3 (1.8-7.7); Neutrophils % (Auto) 41 % (37-80); Nucleated Red Blood Cell # 0.00 Thou/mm3 (0.00-0.00); Nucleated Red Blood Cell % 0 /100 WBC (0); Platelet Count 174 Thou/mm3 (140-440); RDW Standard Deviation 71.7 fL (36.4-46.3); Red Blood Count 3.59 Miln/mm3 (4.00-5.20); White Blood Count 3.7 Thou/mm3 (3.6-11.0)
[2025-07-14 13:10] LABS: Alanine Aminotransferase < 7 U/L (10-49); Albumin, Serum 4.3 gm/dL (3.4-4.8); Albumin/Globulin Ratio 1.7 (1.2-2.2); Alkaline Phosphatase 251 U/L (46-116); Anion Gap 9 (7-16); Aspartate Amino Transferase 21 U/L (0-34); BUN/Creatinine Ratio 13 Ratio (12-20); Bilirubin,Total 0.4 mg/dL (0.3-1.2); Blood Urea Nitrogen 12 mg/dL (9-23); Calcium 9.3 mg/dL (8.3-10.6); Calcium (Corrected) 9.3 mg/dL (8.5-10.1); Carbon Dioxide 26.5 mMol/L (20.0-31.0); Chloride 106 mMol/L (98-107); Creatinine (Component) 0.9 mg/dL (0.6-1.3); Globulin 2.6 gm/dL (2.3-3.5); Glucose 85 mg/dL (74-106); Osmolality,Calculated 279 (275-295); Potassium 4.1 mMol/L (3.4-5.1); Sodium 141 mMol/L (136-145); Total Protein 6.9 gm/dL (5.7-8.2); eGFR > 60 See Note
== END | disposition home or self-care (01) ==
LOC: SLAB 11:51
PROVIDERS: Referring Provider Internal Medicine Hematology & Oncology; Visit Provider Internal Medicine Hematology & Oncology
DX: C50.211 Malignant neoplasm of upper-inner quadrant of right female breast (principal)
CPT/HCPCS: 36415; 80053; 85025; 93005

== ENCOUNTER → 2025-07-20 | Outpatient (CLI) | payer OTHER, SELFPAY | END | disposition home or self-care (01) | LOC: SWHD 14:58 | PROVIDERS: PCP Student in an Organized Health Care Education/Training Program; Referring Provider Student in an Organized Health Care Education/Training Program; Visit Provider Student in an Organized Health Care Education/Training Program | DX: L98.492 Non-pressure chronic ulcer of skin of other sites with fat layer exposed (principal); S21.001A Unspecified open wound of right breast, initial encounter; X58.XXXA Exposure to other specified factors, initial encounter; H54.61 Unqualified visual loss, right eye, normal vision left eye; C50.911 Malignant neoplasm of unspecified site of right female breast | CPT/HCPCS: 99212; G0463 ==

== ENCOUNTER 2025-07-28 07:31 | Outpatient (CLI) | payer OTHER, SELFPAY ==
[2025-07-27 12:20] LABS: Basophils # (Auto) 0.0 Thou/mm3 (0.0-0.2); Basophils % (Auto) 2 % (0-2.5); Eosinophils # (Auto) 0.0 Thou/mm3 (0.0-0.5); Eosinophils % (Auto) 2 % (0-10); Hematocrit 32.8 % (36.0-46.0); Hemoglobin 10.8 g/dL (12.0-16.0); Immature Granulocytes Auto 0.01 Thou/mm3 (0.00-0.00); Lymphocytes # (Auto) 1.0 Thou/mm3 (1.0-4.8); Lymphocytes % (Auto) 36 % (10-50); Mean Corpuscular HGB Conc 32.9 g/dl (31.0-37.0); Mean Corpuscular Hemoglobin 33.1 pg (25.0-35.0); Mean Corpuscular Volume 101 fL (80-100); Monocytes # (Auto) 0.1 Thou/mm3 (0.0-0.8); Monocytes % (Auto) 5 % (0-12); Neutrophils # (Auto) 1.5 Thou/mm3 (1.8-7.7); Neutrophils % (Auto) 56 % (37-80); Nucleated Red Blood Cell # 0.00 Thou/mm3 (0.00-0.00); Nucleated Red Blood Cell % 0 /100 WBC (0); Platelet Count 336 Thou/mm3 (140-440); RDW Standard Deviation 74.7 fL (36.4-46.3); Red Blood Count 3.26 Miln/mm3 (4.00-5.20); White Blood Count 2.7 Thou/mm3 (3.6-11.0)
[2025-07-27 12:26] LABS: INR 0.9 (0.9-1.3); Partial Thromboplastin Time 28.8 Seconds (22.0-36.0); Prothrombin Time 10.1 Seconds (9.0-12.2)
[2025-07-27 12:36] LABS: Blood Urea Nitrogen 16 mg/dL (9-23); Creatinine (Component) 0.9 mg/dL (0.6-1.3); eGFR > 60 See Note
[2025-07-28] VITALS (12 sets, daily range): BP systolic 115–153; BP diastolic 43–89; PULSE 55–88; RESP 12–22; TEMP 36.3–36.8; O2SAT 98–100; BMI 26.5
--- NOTE | 2025-07-28 08:25 | XR_ITS ---
Examination: CT lumbar spine, without contrast. 2-D sagittal reconstructions. 2-D coronal reconstructions. 3-D reconstructions. Date and time of exam: July 28, 2024, 0844 hours INDICATIONS: Diagnosis breast cancer, plain films lumbar spine April 23, 2025 extensive osseous metastatic disease with prominent bone destruction involving L4, L5 vertebral bodies CTDI: vol (mGy): 25.7 DLP: (mGycm): 825 Technique: Multiple 1.25 mm axial sections of the lumbar spine without intravenous contrast have been obtained. 2-D sagittal and coronal reconstructions have been obtained. 3-D reconstructions have been obtained. Low dose protocols were performed. One or more of the following dose reduction techniques were used; automated exposure control, adjustment of the mA and/or KV according to patient size, use of iterative reconstruction technique. Findings: Severe osteopenia Pathologic compression fractures L4, L5 vertebral bodies with marked osteolytic lesions and bone destruction involving vertebral bodies pedicles and lamina First second and third sacral segments intact Severe osteopenia IMPRESSION: Pathologic compression fractures L4, L5 vertebral bodies
--- NOTE | 2025-07-28 08:30 | XR_ITS ---
Examination: CT guided percutaneous bone biopsy deep L5 vertebral body. CT lumbar spine without intravenous contrast Date and time of procedure: July 28, 2025, 0928 hours INDICATIONS: Diagnosis breast cancer, pathologic severe fractures L4-L5 vertebral bodies on CT lumbar spine examination today Informed consent provided. A timeout was completed verifying correct patient, procedure, site and positioning. Technique: Axial 3 mm sections were obtained for localization of the pathologic compressed L5 vertebral body Appropriate area is marked. The patient's site was prepped and draped in sterile fashion Maximal sterile barrier technique utilized, including hand hygiene Local anesthesia was obtained with 1% lidocaine. Low dose protocols were performed. One or more of the following dose reduction techniques were used; automated exposure control, adjustment of the mA and/or KV according to patient size, use of iterative reconstruction technique. Utilizing CT fluoroscopic guidance 2 core biopsies obtained of the pathologic compressed L5 vertebral body Patient appears in stable condition during this procedure. At completion of the procedure, the patient is in satisfactory condition. Estimated blood loss 5 cc Complete pathology report to follow. Impression: Successful CT-guided percutaneous bone biopsy deep L5 vertebral body
[2025-07-28] MEDS: SODIUM CHLORIDE 0.9% 500 ML 500 ML 100 ML IV (09:15)
[2025-07-28] MEDS: fentaNYL CIT INJ 50 mCg/ML AMP 2ML IV (09:45)
--- NOTE | 2025-07-28 15:04 | PC.NURSE ---
1005 patient is awake, alert, breathing unlabored, s/p bone biopsy, dressing to left lower back dry with no bleeding, report received from Shawn LAGUERRE, patient to recover for 1 1/2 hours. 1137 patient is awake, alert, breathing unlabored, dressing dry with no bleeding, discharge instructions given to patient and family member, patient assisted to dress by family member and was discharged home in personal wheelchair with all belongings.
== END 2025-07-28 11:37 | disposition home or self-care (01) ==
PROVIDERS: Radiology Diagnostic Radiology; PCP Student in an Organized Health Care Education/Training Program; Referring Provider Internal Medicine Hematology & Oncology; Visit Provider Internal Medicine Hematology & Oncology
DX: C50.211 Malignant neoplasm of upper-inner quadrant of right female breast (principal); M84.48XA Pathological fracture, other site, initial encounter for fracture
CPT/HCPCS: 62267; 36415; 72131; 77012; 82565; 84520; 85025; 85610; 85730; J3010; J7999

== ENCOUNTER 2025-08-06 14:24 | Outpatient (RCR) | payer OTHER, SELFPAY ==
--- NOTE | 2025-08-06 15:10 | CTCFLWUP_ITS ---
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 Patient with diagnosis of right breast CA 05/20/2020 with biopsy revealing invasive ductal carcinoma receptor positive HER2 negative elected to not receive any conventional treatment using natural remedies only. There are obvious bone mets with extensive bone destruction involving pelvis hips L-spine, right scapula and left clavicle with soft tissue mass projecting over the upper right chest noted on plain films.. C-spine and T-spine damage appear to be degenerative joint disease, on plain x-ray Patient has seen medical oncologist Dr. Moss who has prescribed anastrozole and Kisqali. Patient has been complaining of back pain CT L-spine revealed pathologic compression fracture of L4-5 vertebral bodies. There were osteolytic lesions and bone destruction involving vertebral bodies. CT-guided biopsy of L4-5 07 28 25 revealed benign connective tissue. Patient is tolerating the med regimen of anastrozole and Kisquali well. Patient reportedly is getting physical therapy. A#!. Right breast CA locally advanced biopsy performed 05/20/2020 receptor positive HER2 negative elected to not get any treatment following biopsy. #2. widespread bone mets involving L-spine hips and pelvis right scapula clavicle. L-spine CT shows pathological fracture L4-5. Biopsy however shows only benign tissue. #3. Clinically patient is doing surprisingly well, with minimal pain and even getting PT to improve ambulation. #4. I do feel that patient has malignancy involving the L-spine area, which will likely reduce her limited ambulation ability along with increasing pain. #5. Shall order MRI of the L-spine at this time and see her again in 2 months. Electronically signed by: Zeke Navarro M.D. 08/06/2025 3:08 PM
== END 2025-08-26 23:59 | disposition home or self-care (01) ==
LOC: SCTC 14:24
PROVIDERS: PCP Internal Medicine; Referring Provider Internal Medicine; Visit Provider Radiology Therapeutic Radiology
DX: C50.211 Malignant neoplasm of upper-inner quadrant of right female breast (principal); C79.51 Secondary malignant neoplasm of bone; Z17.0 Estrogen receptor positive status [ER+]; Z17.21 Progesterone receptor positive status; Z17.32 Human epidermal growth factor receptor 2 negative status
CPT/HCPCS: 99213; G0463